=== PATIENT | male | born 1960 | race Caucasian/White ===

== ENCOUNTER 2023-01-03 20:46 | Inpatient (IN) | payer MEDICARE ==
[2023-01-03 22:45] VITALS: BMI 35.7
[2023-01-03] MEDS ORDERED: Calcium Carbonate 500 MG ChewTAB PO PRN (22:52)
[2023-01-03] MEDS ORDERED: Acetaminophen 325 MG TAB PO PRN (22:52)
[2023-01-03] MEDS ORDERED: Ondansetron ODT 4 MG TAB PO PRN (22:52)
[2023-01-03] MEDS ORDERED: Senokot S 8.6-50 MG TAB PO PRN (22:52)
[2023-01-03] MEDS ORDERED: Nitroglycerin 0.4 MG TAB (25 Tab Bottle) SL PRN (22:52)
[2023-01-03] MEDS ORDERED: Dextrose 50% Abboject 50 ML SYRINGE SLOW IVP PRN (22:57)
[2023-01-03] MEDS ORDERED: HumaLOG 300 UNITS/3 ML VIAL SC PRN ×2 (22:57)
[2023-01-03] MEDS ORDERED: Dextrose 5% in Water 1,000 ML IV PRN (22:57)
[2023-01-03] MEDS ORDERED: Aspirin Chewable 81 MG TAB PO SCH (23:00)
[2023-01-03] MEDS ORDERED: Carvedilol 25 MG TAB PO SCH (23:45)
[2023-01-04 00:58] LABS: Troponin I 0.018 ng/mL (< 0.028)
[2023-01-04] MEDS: traZODone HCl 50 MG TAB PO PRN ×2 (01:11→21:36)
[2023-01-04 02:11] LABS: #Basophils 0.1 thou/uL (0.0-0.2); #Eosinphils 0.2 thou/uL (0.0-0.7); #Monocytes 0.8 thou/uL (0.11-0.59); #Neutrophils 3.7 thou/uL (1.40-6.50); %Basophils 0.9 % (0.0-1.0); %Eosinophils 2.3 % (0.0-10.0); %Lymphocytes 26.6 % (21.0-51.0); %Monocytes 11.9 % (0.0-10.0); %Neutrophils 57.8 % (42.0-75.0); Hemoglobin 13.2 g/dL (14.0-18.0); Mean Corpuscular HGB CONC 33.1 g/dL (32.0-36.0); Mean Corpuscular Hemoglobin 28.8 pg (27.0-31.0); Mean Corpuscular Volume 87.1 fl (78.0-98.0); Mean Platelet Volume 11.1 fL (7.4-10.4); Platelet Count 183 10x3/uL (130-400); RBC Distribution Width 13.1 % (11.5-14.5); Red Blood Cell (RBC) Count 4.58 mill/uL (4.70-6.10); White Blood Cell (WBC) Count 6.5 10x3/uL (4.8-10.8)
[2023-01-04 02:38] LABS: Troponin I 0.013 ng/mL (< 0.028)
[2023-01-04 02:47] LABS: ALT (SGPT) 17 U/L (8-55); AST (SGOT) 19 U/L (5-34); Albumin 4.1 g/dL (3.4-4.8); Alkaline Phosphatase 69 U/L (40-110); Anion Gap 13 mmol/L (10-20); BUN (Urea Nitrogen) 22 mg/dL (8.4-25.7); Bilirubin, Total 0.3 mg/dL (0.2-1.2); Calc. Creatinine Clearance 125 mL/min (70-130); Calcium 9.4 mg/dL (7.8-10.44); Carbon Dioxide 25 mmol/L (23-31); Cardiac Risk 9.1 (Less than 4.5); Chloride 103 mmol/L (98-107); Cholesterol 237 mg/dl (< 200 Desired); Estimated GFR 69; Globulin 3.3 g/dL (2.4-3.5); Glucose 171 mg/dL (80-115); HDL Cholesterol 26 mg/dL (>60 Neg Risk); LDL Cholesterol, Calculated 145 mg/dL; Potassium 3.3 mmol/L (3.5-5.1); Protein, Total 7.4 g/dL (5.8-8.1); Sodium 138 mmol/L (136-145); Triglycerides 330 mg/dL (Less than 150)
[2023-01-04] MEDS ORDERED: Potassium Chloride 20 MEQ TAB PO SCH ×2 (08:15→08:45)
[2023-01-04] MEDS: metFORMIN 500 MG TAB PO SCH ×2 (08:33→18:30)
[2023-01-04] MEDS: Aspirin Chewable 81 MG TAB PO SCH (08:34)
[2023-01-04] MEDS: DULoxetine 60 MG CAP PO SCH (08:34)
[2023-01-04] MEDS: Furosemide 40 MG TAB PO SCH (08:34)
[2023-01-04] MEDS: Valsartan 80 MG TAB PO SCH (08:35)
[2023-01-04] MEDS: Potassium Chloride 20 MEQ TAB PO SCH (08:36)
[2023-01-04] MEDS ORDERED: Famotidine 20 MG TAB PO SCH (09:00)
[2023-01-04] MEDS ORDERED: Amlodipine 10 MG TAB PO SCH (09:00)
[2023-01-04] MEDS ORDERED: Regadenoson 0.4 MG/5 ML SYRINGE ONE (09:01)
[2023-01-04] MEDS: Insulin Glargine 30 UNITS/0.3 ML VIAL SC SCH ×3 (12:27→20:31)
[2023-01-04] MEDS: Carvedilol 25 MG TAB PO SCH ×2 (12:27→18:30)
[2023-01-04] MEDS: NIFEdipine XL 30 MG TAB PO SCH (20:22)
[2023-01-04] MEDS ORDERED: Minoxidil 10 MG TAB PO SCH (21:00)
[2023-01-05] MEDS: Valsartan 80 MG TAB PO SCH (08:07)
[2023-01-05] MEDS: metFORMIN 500 MG TAB PO SCH ×2 (08:07→16:15)
[2023-01-05] MEDS: Aspirin Chewable 81 MG TAB PO SCH (08:07)
[2023-01-05] MEDS: Potassium Chloride 20 MEQ TAB PO SCH (08:07)
[2023-01-05] MEDS: NIFEdipine XL 30 MG TAB PO SCH (08:07)
[2023-01-05] MEDS: Carvedilol 25 MG TAB PO SCH ×2 (08:08→16:15)
[2023-01-05] MEDS: Furosemide 40 MG TAB PO SCH (08:08)
[2023-01-05] MEDS: DULoxetine 60 MG CAP PO SCH (08:10)
[2023-01-05] MEDS: Insulin Glargine 30 UNITS/0.3 ML VIAL SC SCH (08:17)
[2023-01-05 16:22] VITALS: BP 165/81; TEMP 98.1
== END 2023-01-05 17:17 | disposition home or self-care (01) | DRG 313 ==
LOC: 2SW 22:38 → OBSVTOIN 01-04 14:59
PROVIDERS: ADMIT Internal Medicine; ATTEND Internal Medicine
DX: R07.89 Other chest pain (principal); E11.9 Type 2 diabetes mellitus without complications; I10 Essential (primary) hypertension; K21.9 Gastro-esophageal reflux disease without esophagitis; E78.5 Hyperlipidemia, unspecified; E11.42 Type 2 diabetes mellitus with diabetic polyneuropathy; I25.10 Atherosclerotic heart disease of native coronary artery without angina pectoris; F17.290 Nicotine dependence, other tobacco product, uncomplicated; E66.01 Morbid (severe) obesity due to excess calories; Z88.2 Allergy status to sulfonamides; Z88.8 Allergy status to other drugs, medicaments and biological substances; Z79.899 Other long term (current) drug therapy; Z90.49 Acquired absence of other specified parts of digestive tract; Z89.421 Acquired absence of other right toe(s); Z79.4 Long term (current) use of insulin; Z79.84 Long term (current) use of oral hypoglycemic drugs; Z68.35 Body mass index [BMI] 35.0-35.9, adult
CPT/HCPCS: 36415; 36416; 78452; 80053; 80061; 84484; 85025; 93017; 93306; 94760; A9500; G0378; J1815; J2785